=== PATIENT | male | born 1995 | race American Indian/Alaskan Native ===

== ENCOUNTER 2016-08-27 07:00 | Emergency (ER) | payer SELFPAY ==
[2016-08-27 08:21] LABS: Alanine Aminotransferase 58 units/L (7-56); Albumin 4.6 g/dL (3.9-5); Albumin/Globulin Ratio 1.4 %; Alkaline Phosphatase 61 units/L (35-129); Anion Gap 20 mmol/L; BUN/Creatinine Ratio 11.25; Bilirubin,Total 0.5 mg/dL (0.1-1.2); Blood Urea Nitrogen 9 mg/dL (9-20); Calcium 9.4 mg/dL (8.4-10.2); Carbon Dioxide 27 mmol/L (22-30); Chloride 95.1 mmol/L (98-107); Glucose 110 mg/dL (75-100); Lipase 19 units/L (13-60); Potassium 4.2 mmol/L (3.6-5.0); Sodium 138 mmol/L (137-145)
[2016-08-27 08:30] LABS: Basophils % (Auto) 0.4 % (0.0-1.8); Eosinophils % (Auto) 1.6 % (0.0-4.3); Hematocrit 49.1 % (35.5-45.6); Hemoglobin 16.6 gm/dl (11.8-15.2); Mean Corpuscular HGB Conc 34 % (32-34); Mean Corpuscular Hemoglobin 30 pg (28-32); Mean Corpuscular Volume 88 fl (84-94); Platelet Count 288 K/mm3 (140-440); Red Cell Distribution Width 14.3 % (13.2-15.2); White Blood Count 10.1 K/mm3 (4.5-11.0)
[2016-08-27 10:18] LABS: Bilirubin,Urine NEG (Negative); Blood,Urine NEG (Negative); Ketones,Urine NEG (Negative); Leukocyte Esterase,Urine NEG (Negative); Mucus,Urine 2+ /HPF; Nitrite,Urine NEG (Negative)
[2016-08-27 11:51] VITALS: BP 153/94
--- NOTE | 2016-08-29 01:35 | ED Elopement Review ---
ED Pt Elopement review - Results review Lab results: Laboratory Tests 08/27/16 08/27/16 08/27/16 07:46 07:46 Unknown WBC 10.1 RBC 5.60 H Hgb 16.6 H Hct 49.1 H MCV 88 MCH 30 MCHC 34 RDW 14.3 Plt Count 288 Lymph % (Auto) 9.6 L Harvey % (Auto) 7.5 H Eos % (Auto) 1.6 Baso % (Auto) 0.4 Lymph # 1.0 L Harvey # 0.8 Eos # 0.2 Baso # 0.0 Seg Neutrophils % 80.9 H Seg Neutrophils # 8.1 H Sodium 138 Potassium 4.2 Chloride 95.1 L Carbon Dioxide 27 Anion Gap 20 BUN 9 Creatinine 0.8 Estimated GFR > 60 BUN/Creatinine Ratio 11.25 Glucose 110 H Calcium 9.4 Total Bilirubin 0.5 AST 33 ALT 58 H Alkaline Phosphatase 61 Total Protein 8.0 Albumin 4.6 Albumin/Globulin Ratio 1.4 Lipase 19 Urine Color Yellow Urine Turbidity Clear Urine pH 6.0 Ur Specific [place] 1.026 Urine Protein 30 mg/dl Urine Glucose (UA) Neg Urine Ketones Neg Urine Blood Neg Urine Nitrite Neg Urine Bilirubin Neg Urine Urobilinogen 2.0 Ur Leukocyte Esterase Neg Urine WBC (Auto) 1.0 Urine RBC (Auto) 3.0 U Epithel Cells (Auto) < 1.0 Urine Mucus 2+ - Call Back decision Pt Call Back Decision: Pt to F/U with PMD
== END 2016-08-27 15:07 | disposition left against medical advice (07) ==
LOC: ED 07:00
DX: R10.9 Unspecified abdominal pain (principal); R11.10 Vomiting, unspecified; Z53.21 Procedure and treatment not carried out due to patient leaving prior to being seen by health care provider
CPT/HCPCS: 36415; 80053; 81001; 83690; 85025